=== PATIENT | female | born 1995 | race Caucasian/White ===

== ENCOUNTER 2021-03-06 18:11 | Emergency (ER) | payer OTHER ==
[~2021-03-06] VITALS: Ht 177.8 cm; Wt 127.3 kg
[2021-03-06 18:12] VITALS: BP 160/115
== END 2021-03-06 19:12 | disposition home or self-care (01) ==
LOC: EMS 18:11
DX: S90.32XA Contusion of left foot, initial encounter (principal); E78.00 Pure hypercholesterolemia, unspecified; X58.XXXA Exposure to other specified factors, initial encounter; Y93.89 Activity, other specified; Y92.89 Other specified places as the place of occurrence of the external cause; Y99.8 Other external cause status
CPT/HCPCS: 99283